=== PATIENT | male | born 1990 | race Caucasian/White ===

== ENCOUNTER 2018-07-05 13:38 | Emergency (ER) | payer OTHER ==
[~2018-07-05] VITALS: Ht 172.7 cm; Wt 104.3 kg
[2018-07-05 13:50] VITALS: BP 160/102
--- NOTE | 2018-07-05 13:50 | NUR ---
PT AMBULATED TO ER BED 03
--- NOTE | 2018-07-05 14:01 | NUR ---
pt c/o productive cough, rhinorrhea, h/a x 2 wks. denies n/v/d fevers at home. no other complaints. hx; denies rx; denies
[2018-07-05 14:28] VITALS: BP 140/85
--- NOTE | 2018-07-05 14:28 | NUR ---
Patient discharged with v/s stable. Written and verbal after care instructions given and explained. Patient alert, oriented and verbalized understanding of instructions. Ambulatory with steady gait. All questions addressed prior to discharge. ID band removed. Patient advised to follow up with PMD. Rx of PROMETHAZINE HYDROCHLORIDE WITH CODEINE PHOSPHATE 6.25MG-10MG/5ML SYRUP given. Patient educated on indication of medication including possible reaction and side effects. Opportunity to ask questions provided and answered.
== END 2018-07-05 14:28 | disposition home or self-care (01) ==
LOC: MED 13:38
DX: J06.9 Acute upper respiratory infection, unspecified (principal)
CPT/HCPCS: 71045; 99283; Q0092

== ENCOUNTER 2021-06-20 23:20 | Emergency (ER) | payer OTHER ==
[~2021-06-20] VITALS: Ht 175.3 cm; Wt 93.0 kg
[2021-06-20 23:23] VITALS: BP 154/118
--- NOTE | 2021-06-20 23:33 | NUR ---
30 YO/M BIB SELF W C/O HEAD INJURY S/P CRASHING INTO A WALL HITTING L SIDE FACE/HEAD WHILE PLAYING HOCKEY, +GETTING HIT IN BACK OF HEAD W A HOCKEY STICK BY ANOTHER PLAYER. PT REPORTS X1 EPISODE OF VOMIT (NO BLOOD), +NAUSEA, DIZZYNESS. PT DENIES LOC, OR ANY PAIN. PT AOX4, GCS 15, PERRL AT 4MM, BREATHING EVEN AND ULABORED. NO WOUNDS, BUMPS OR REDNESS NOTED. VSS. FRIEND AT BEDSIDE. PT SITTING IN BED LOCKED IN LOWEST POSITION W X1 SIDERAIL UP. PT SPEAKING W FRIEND AT BEDSIDE. PMH: PREVIOUS CONCUSSIONS, PRE-HTN, ASTHMA NKA
--- NOTE | 2021-06-21 00:11 | NUR ---
Jose Luis jaimes in ED - 06/21/21 at 0012 by AKUAK ERMD AT BEDSIDE ASSESSING PT.
--- NOTE | 2021-06-21 00:19 | NUR ---
ERMD AT BEDSIDE ASSESSING PT.
--- NOTE | 2021-06-21 00:42 | NUR ---
PT TAKEN TO CT
--- NOTE | 2021-06-21 00:51 | NUR ---
PT RETURNED FROM CT
--- NOTE | 2021-06-21 00:52 | NUR ---
PT DOES NOT WISH TO STAY FOR RESULTS OF CT. PT INFORMED OF RISK/BENEFITS AND WOULD STILL LIKE TO LEAVE AT THIS TIME. PT STATES "I CAN JUST FOLLOW UP LATER." PT LEFT FACILITY AT THIS TIME.
== END 2021-06-21 00:52 | disposition left against medical advice (07) ==
LOC: MED 23:20
DX: S09.90XA Unspecified injury of head, initial encounter (principal); J45.909 Unspecified asthma, uncomplicated; W22.8XXA Striking against or struck by other objects, initial encounter; Y92.89 Other specified places as the place of occurrence of the external cause; Y93.89 Activity, other specified; Y99.8 Other external cause status
CPT/HCPCS: 70450; 99284

== ENCOUNTER 2022-11-23 20:01 | Emergency (ER) | payer OTHER ==
[~2022-11-23] VITALS: Ht 175.3 cm; Wt 99.8 kg
[2022-11-23 21:07] VITALS: BP 183/133
--- NOTE | 2022-11-23 21:13 | NUR ---
pt to bed 09.
[2022-11-23 21:39] LABS: BASOPHILS % (AUTO) 0.3 % (0.0-2.0); EOSINOPHILS # (AUTO) 0.3 K/uL (0-0.4); HEMOGLOBIN 15.7 g/dL (12.0-18.0); LYMPHOCYTES # (AUTO) 1.8 K/uL (2.0-11.5); LYMPHOCYTES % (AUTO) 14.2 % (20.5-51.1); MEAN CORPUSCULAR HEMOGLOBIN 29 pg (27-31); MEAN CORPUSCULAR HGB CONC 34 g/dL (33-37); MEAN CORPUSCULAR VOLUME 85.2 fL (80-94); MONOCYTES # (AUTO) 0.9 K/uL (0.8-1.0); NEUTROPHILS # (AUTO) 9.6 K/uL (1.8-7.7); NEUTROPHILS % (AUTO) 76.5 % (42.2-75.2); PLATELET COUNT (AUTO) 284 K/uL (140-450); RED BLOOD CELL COUNT(AUTO) 5.51 MIL/uL (4.20-6.10); RED CELL DISTRIBUTION WIDTH 13.4 % (11.6-13.7); WHITE BLOOD COUNT (AUTO) 12.6 K/uL (4.8-10.8)
[2022-11-23 21:55] LABS: ALBUMIN 4.3 g/dL (3.4-5.0); ANION GAP 12.2 (8-16); ASPARTATE AMINOTRANSFERASE 20 U/L (15-37); CARBON DIOXIDE 30.3 mmol/L (21-32); CHLORIDE 102 mmol/L (98-107); CREATININE 1.1 mg/dL (0.6-1.3); GFR ARICAN-AMERICAN 100 mL/min (>90); GLUCOSE 110 mg/dL (74-106); POTASSIUM 3.5 mmol/L (3.5-5.1); SODIUM SERUM 141 mmol/L (136-145); TOTAL BILIRUBIN 0.3 mg/dL (0.0-1.0); UREA NITROGEN, BLOOD 17 mg/dL (7-18)
[2022-11-23] MEDS ORDERED: LORazepam 1 MG TAB PO ONE (22:20)
[2022-11-24 00:15] VITALS: BP 153/89
--- NOTE | 2022-11-24 00:15 | NUR ---
Patient discharged. Written and verbal after care instructions given and explained. Patient verbalized understanding. Ambulatory with steady gait. ID band removed. All questions addressed prior to discharge. Advised to follow up with PMD.
[2022-11-24 00:33] LABS: CHOL/HDL RATIO 4.9 (1-4.5)
== END 2022-11-24 00:15 | disposition home or self-care (01) ==
LOC: MED 20:01
DX: R07.9 Chest pain, unspecified (principal); I10 Essential (primary) hypertension; J45.909 Unspecified asthma, uncomplicated; Z98.890 Other specified postprocedural states
CPT/HCPCS: 36415; 71045; 80053; 80061; 84484; 85025; 93005; 99285; Q0092

== ENCOUNTER 2023-09-06 22:21 | Emergency (ER) | payer OTHER ==
[~2023-09-06] VITALS: Ht 172.7 cm; Wt 108.4 kg
[2023-09-06 22:42] VITALS: BP 133/89; PULSE 78; RESP 24; TEMP 98.5; O2SAT 100
[2023-09-06 23:24] LABS: BASOPHILS # (AUTO) 0.1 K/uL (0.00-0.22); BASOPHILS % (AUTO) 0.5 % (0.0-2.0); EOSINOPHILS # (AUTO) 0.2 K/uL (0-0.4); EOSINOPHILS % (AUTO) 1.5 % (0.0-4.0); HEMATOCRIT 43.6 % (36-52); HEMOGLOBIN 15.1 g/dL (12.0-18.0); LYMPHOCYTES # (AUTO) 1.8 K/uL (2.0-11.5); LYMPHOCYTES % (AUTO) 15.4 % (20.5-51.1); MEAN CORPUSCULAR HEMOGLOBIN 29 pg (27-31); MEAN CORPUSCULAR HGB CONC 35 g/dL (33-37); MEAN CORPUSCULAR VOLUME 83.5 fL (80-94); MONOCYTES # (AUTO) 0.9 K/uL (0.8-1.0); MONOCYTES % (AUTO) 7.7 % (1.7-9.3); NEUTROPHILS # (AUTO) 8.8 K/uL (1.8-7.7); NEUTROPHILS % (AUTO) 74.9 % (42.2-75.2); PLATELET COUNT (AUTO) 313 K/uL (140-450); RED BLOOD CELL COUNT(AUTO) 5.22 MIL/uL (4.20-6.10); WHITE BLOOD COUNT (AUTO) 11.8 K/uL (4.8-10.8)
[2023-09-06 23:56] LABS: APPEARANCE,URINE CLEAR (CLEAR); BILIRUBIN,URINE NEGATIVE (NEGATIVE); BLOOD, URINE TRACE-I (NEGATIVE); COLOR,URINE YELLOW (YELLOW); LEUKOCYTE ESTERASE ,URINE NEGATIVE (NEGATIVE); NITRITE, URINE NEGATIVE (NEGATIVE); PROTEIN,URINE NEGATIVE (NEGATIVE); UGLUCOSE NEGATIVE (NEGATIVE); UROBILINOGEN,URINE 0.2 EU/dL (0.2 - 1)
[2023-09-06 23:59] LABS: BACTERIA,URINE FEW /HPF (None Seen); RBC,URINE 0-5 /HPF (0-5); WBC,URINE 0-5 /HPF (0-5)
[2023-09-07] LABS: ANION GAP 11.6 (8-16); CALCIUM 9.1 mg/dL (8.5-10.1); CARBON DIOXIDE 26.4 mmol/L (21-32)
[2023-09-07] LABS: MUCUS,URINE None Seen /LPF (None Seen); SQUAMOUS EPITHELIAL CELL,UR 0-3 (FEW) /LPF (0-3 (FEW))
[2023-09-07 00:04] LABS: BILIRUBIN,DIRECT 0.1 mg/dL (0.0-0.3); TOTAL BILIRUBIN 0.4 mg/dL (0.0-1.0); TOTAL PROTEIN, SERUM 8.8 g/dL (6.4-8.2)
[2023-09-07] MEDS ORDERED: KETOROLAC 30 MG/ML VIAL IM ONE (00:05)
== END 2023-09-07 00:28 | disposition home or self-care (01) ==
LOC: MED 22:21
DX: M25.551 Pain in right hip (principal); M79.651 Pain in right thigh; J45.909 Unspecified asthma, uncomplicated; Z79.899 Other long term (current) drug therapy
CPT/HCPCS: 36415; 74176; 80048; 80076; 81001; 83690; 85025; 96372; 99285; J1885